=== PATIENT | male | born 1960 | race Caucasian/White ===

== ENCOUNTER 2017-04-01 14:19 | Emergency (ER) | payer MEDICAID ==
[~2017-04-01] VITALS: Ht 188 cm; Wt 73.0 kg
[2017-04-01 14:31] VITALS: BP 148/85
[2017-04-01] MEDS ORDERED: LIDOCAINE 1% HCL (LOCAL ANESTH.) INJ 20ML MDV IN ONE (15:00)
[2017-04-01] MEDS ORDERED: LIDOCAINE 1% HCL (LOCAL ANESTH.) INJ 20ML MDV ONE (15:01)
[2017-04-01] MEDS ORDERED: cefTRIAXone SOD 1,000 MG VL IM ONE (15:15)
[2017-04-01] MEDS ORDERED: traMADol HCL 50 MG TAB PO ONE (15:15)
== END 2017-04-01 15:40 | disposition home or self-care (01) ==
LOC: ER 14:19
DX: H44.002 Unspecified purulent endophthalmitis, left eye (principal); F17.210 Nicotine dependence, cigarettes, uncomplicated
CPT/HCPCS: 10060; 87077; 87186; 87205; 96372; 99284; J0696; J2001

== ENCOUNTER 2017-04-03 14:48 | Emergency (ER) | payer MEDICAID ==
[~2017-04-03] VITALS: Ht 188 cm; Wt 74.8 kg
[2017-04-03 15:04] VITALS: BP 101/81
== END 2017-04-03 16:49 | disposition home or self-care (01) ==
LOC: ER 15:01
DX: H44.002 Unspecified purulent endophthalmitis, left eye (principal); F17.210 Nicotine dependence, cigarettes, uncomplicated; W57.XXXA Bitten or stung by nonvenomous insect and other nonvenomous arthropods, initial encounter; Y93.89 Activity, other specified; Y92.89 Other specified places as the place of occurrence of the external cause; Y99.8 Other external cause status